=== PATIENT | female | born 1975 | race Caucasian/White ===

== ENCOUNTER → 2019-12-01 | Outpatient (CLI) | payer BC ==
[~2019-12-01] VITALS: Ht 160 cm; Wt 89.8 kg
--- NOTE | 2019-12-01 11:15 | NUR ---
PT HERE FOR PRE REGISTRATION, CXR, EKG AND COVID-19 TESTING. PT REPORTS VIA DTR ASSISTANT [employer] MA[employer] OPERATIONS THAT SHE HAS HAD CHEST PAIN, CHEST PRESSURE AND HEAVINESS, PALPITATION FOR 12 YEARS. I HAVE 8 KIDS AND HAVE ALOT OF ANXIETY. JUSTIN IN LAST 4-6MONTHS PAIN SCALE 6/10. PAIN GOES INTO NECK BUT NOT IN LEFT ARM. SOMETIMES GETS DIZZY. WAS SEEN AT [facility] AND LAST AT [facility] ONE YEAR AGO AND TOLD IT WAS PULMONARY HTN AND TO FOLLOWUP WITH PCP. PT DOES NOT HAVE PCP AND DID NOT FOLLOWUP. TAKES NO MEDICATION. CALL TO MIGUEL AT DR THIERRY LICEA'S OFFICE. UPDATED WITH PT COMMENTS, COPY OF EKG AND CXR SENT. STATES "WILL CHECK WITH DR LICEA AND CALL IF ANY FURTHER ORDERS." LABS TO BE DRAWN ON Friday12-03-19. PT AND DTR UPDATED WITH OFFICE CONVERSATION. ENCOURAGED TO FIND PCP AND MAKE APPOINTMENT FOR EVALUATION. VERBALIZED UNDERSTANDING.
== END | disposition home or self-care (01) ==
LOC: MA 11-30 09:00 → RD 08:00 → MA 12-09 09:00 → DS 12-09 09:00 → EDSTATUS 12-09 09:00
PROVIDERS: ATTEND Surgery
DX: D24.2 Benign neoplasm of left breast (principal)
CPT/HCPCS: Q0092; U0003-CS

== ENCOUNTER 2019-12-27 08:24 | Day surgery (SDC) | payer BC ==
[2019-12-20 16:34] LABS: ALBUMIN 3.6 g/dL (3.4-5.0); ALKALINE PHOSPHATASE 85 U/L (46-116); ALT/SGPT 24 U/L (14-59); AST/SGOT 17 U/L (15-37); BILIRUBIN TOTAL 0.25 mg/dL (0.20-1.00); CALCIUM 8.4 mg/dL (8.5-10.1); CARBON DIOXIDE 33.2 mmol/L (21-32); CHLORIDE SERUM 105 mmol/L (98-107); CREATININE SERUM 0.8 mg/dL (0.6-1.0); GFR1 > 60 mL/min; GLUCOSE SERUM 101 mg/dL (74-106); POTASSIUM SERUM 3.3 mmol/L (3.5-5.1); SODIUM SERUM 140 mmol/L (136-145); TOTAL PROTEIN, SERUM 7.4 g/dL (6.4-8.2)
[2019-12-20 16:46] LABS: PLATELET COUNT 286 x10^3mcL (130-400); RED CELL DISTRIBUTION WIDTH 12.3 % (11.5-14.5)
[~2019-12-27] VITALS: Ht 160 cm; Wt 89.8 kg
[2019-12-27 08:44] VITALS: BP 128/73
[2019-12-27 17:23] VITALS: BP 126/70
== END 2019-12-27 17:00 | disposition home or self-care (01) ==
LOC: DS 08:24 → OR 11:00 → DS 17:00
PROVIDERS: ATTEND Surgery
DX: D24.2 Benign neoplasm of left breast (principal); E66.9 Obesity, unspecified; Z20.828 Contact with and (suspected) exposure to other viral communicable diseases
CPT/HCPCS: J0690; J1170; J1885; J2001; J2250; J2405; J2704; J2765; J3010; J3490; J7120; U0003-CS